=== PATIENT | female | born 1950 | race Caucasian/White ===

== ENCOUNTER 2024-04-05 04:27 | Day surgery (SDC) | payer OTHER, BC ==
[2024-04-01 14:49] VITALS: BMI 18.4
[2024-04-05] MEDS ORDERED: PHENAZOPYRIDINE HCL 100 MG TABLET (FP) ONE (06:49)
[2024-04-05] MEDS: PHENAZOPYRIDINE HCL 100 MG TABLET (FP) PO ONE (06:55)
[2024-04-05] MEDS ORDERED: PROPOFOL 20 ML ONE ×2 (07:18→09:41)
[2024-04-05] MEDS ORDERED: MIDAZOLAM HCL 2 MG/2 ML SINGLE DOSE VIAL ONE (07:18)
[2024-04-05] MEDS ORDERED: LIDOCAINE HCL/PF 2% SDV 5ML VIAL ONE (07:18)
[2024-04-05] MEDS ORDERED: SUCCINYLCHOLINE CHLORIDE 200 MG/10 ML SYRINGE ONE (07:18)
[2024-04-05] MEDS ORDERED: ROCURONIUM BROMIDE 50 MG/5 ML SYRINGE ONE (07:18)
[2024-04-05] MEDS: ceFAZolin SODIUM 1 GM VIAL IVPB ONE (08:02)
[2024-04-05] MEDS ORDERED: ceFAZolin SODIUM 1 GM VIAL ONE (08:18)
[2024-04-05] MEDS ORDERED: DEXAMETHASONE SOD PHOSPHATE 4 MG/1 ML VIAL ONE (08:18)
[2024-04-05] MEDS ORDERED: ONDANSETRON 4 MG/2 ML VIAL ONE ×2 (08:57→11:24)
[2024-04-05] MEDS ORDERED: KETOROLAC TROMETHAMINE 30 MG/1 ML VIAL ONE (08:57)
[2024-04-05] MEDS ORDERED: NEOSTIGMINE METHYLSULFATE 0.5 MG/1 ML - 10 ML MDV ONE (09:08)
[2024-04-05] MEDS ORDERED: GLYCOPYRROLATE 0.2 MG/1 ML VIAL ONE (09:08)
[2024-04-05] MEDS ORDERED: LACTATED RINGERS SOLUTION 1,000 ML IV SCH (09:15)
[2024-04-05] MEDS: FERRIC SUBSULFATE 500 ML BOTTLE TP ONE (09:50)
[2024-04-05] MEDS ORDERED: ACETAMINOPHEN INJECTION 100 ML IVPB ONE (10:33)
[2024-04-05] MEDS: ACETAMINOPHEN 1000 MG/100 ML BAG IVPB ONE (10:38)
[2024-04-05] MEDS: ONDANSETRON 4 MG/2 ML VIAL IVPUSH PRN (11:25)
[2024-04-05] MEDS ORDERED: PROMETHAZINE HCL 25 MG/1 ML VIAL ONE (11:58)
[2024-04-05] MEDS: PROMETHAZINE HCL 25 MG/1 ML VIAL IVPB PRN (12:00)
[2024-04-05 13:30] VITALS: PULSE 66; RESP 16
[2024-04-05 15:56] VITALS: BP 119/49; TEMP 97.8
== END 2024-04-05 15:59 | disposition home or self-care (01) ==
LOC: JASUSAT 04:27
PROVIDERS: ATTEND Obstetrics & Gynecology
PROC: 0UB98ZZ Excision of Uterus, Via Natural or Artificial Opening Endoscopic (ICD-10-PCS; 2024-04-05)
PROC: 0UB04ZZ Excision of Right Ovary, Percutaneous Endoscopic Approach (ICD-10-PCS; principal; 2024-04-05 07:30)
PROC: 0UDB8ZX Extraction of Endometrium, Via Natural or Artificial Opening Endoscopic, Diagnostic (ICD-10-PCS; 2024-04-05 07:30)
PROC: 0UBC7ZX Excision of Cervix, Via Natural or Artificial Opening, Diagnostic (ICD-10-PCS; 2024-04-05 07:30)
PROC: 8E0W4CZ Robotic Assisted Procedure of Trunk Region, Percutaneous Endoscopic Approach (ICD-10-PCS; 2024-04-05 07:30)
DX: D27.0 Benign neoplasm of right ovary (principal); N84.1 Polyp of cervix uteri; N84.0 Polyp of corpus uteri; N88.2 Stricture and stenosis of cervix uteri
CPT/HCPCS: 86850; 86900; 86901; 88305-TC; 88307-TC; 88341-TC; 88342-TC; 94760; J0131